=== PATIENT | female | born 1970 | race Caucasian/White ===

== ENCOUNTER 2020-11-24 06:04 | Emergency (ER) | payer MEDICAID ==
[~2020-11-24] VITALS: Ht 162.6 cm; Wt 136.4 kg
[2020-11-24 06:08] VITALS: BP 193/95; Ht 162.6 cm; Wt 136.4 kg
[2020-11-24] MEDS ORDERED: AMBIEN10 MG PO (06:14)
== END 2020-11-24 06:25 | disposition home or self-care (01) ==
LOC: D.ER 06:04
DX: G47.00 Insomnia, unspecified (principal); Z76.0 Encounter for issue of repeat prescription